=== PATIENT | female | born 1985 | race Caucasian/White ===

== ENCOUNTER → 2019-06-12 12:10 | Outpatient (BNVA) | payer BC, SELFPAY | PROVIDERS: Family Provider Nurse Practitioner Family; PCP Nurse Practitioner Family; Visit Provider Nurse Practitioner Family | DX: R94.4 Abnormal results of kidney function studies (principal) | CPT/HCPCS: 82570; 84156 ==

== ENCOUNTER → 2019-12-04 14:06 | Outpatient (BNVA) | payer BC, SELFPAY | PROVIDERS: Family Provider Nurse Practitioner Family; PCP Nurse Practitioner Family; Visit Provider Nurse Practitioner Family | DX: Z11.59 Encounter for screening for other viral diseases (principal) | CPT/HCPCS: 87635 ==

== ENCOUNTER → 2020-05-15 10:50 | Outpatient (BNVA) | payer BC, SELFPAY | PROVIDERS: Family Provider Nurse Practitioner Family; PCP Nurse Practitioner Family; Visit Provider Nurse Practitioner Family | DX: E03.9 Hypothyroidism, unspecified (principal); E55.9 Vitamin D deficiency, unspecified; D64.9 Anemia, unspecified; Z79.899 Other long term (current) drug therapy; Z13.6 Encounter for screening for cardiovascular disorders | CPT/HCPCS: 80053; 80061; 81003; 82306; 82607; 82746; 83036; 83550; 84439; 84443; 84481; 85025 ==

== ENCOUNTER 2020-06-17 14:43 | Outpatient (CLI) | payer OTHER, SELFPAY ==
--- NOTE | 2020-06-17 14:46 | US_ITS ---
WS: [id number] THYROID ULTRASOUND (TI-RADS CRITERIA) History: Hypothyroidism. Technique: Ultrasound examination of the thyroid and adjacent soft tissues is performed. FINDINGS: Right lobe: 5.4 cm x 1.3 cm x 1.4 cm. Volume: 4.9 cm3. Normal size and echogenicity. There is a subcentimeter hypoechoic nodule in the superior thyroid rory uring 7 x 5 x 4 mm. Benign cervical chain lymph nodes. Left lobe: 4.4 cm x 1.1 cm x 1.1 cm. Volume: 2.9 cm3. Normal size. Complex cystic nodule in the mid gland measuring 1.0 x 0.9 x 0.7 cm. Isthmus: 0.3 cm. Estimated total number of nodules greater than or equal to 1 cm: 1 on the LEFT. Number of spongiform nodules greater than or equal to 2 cm not described below (TR1): 0. Number of mixed cystic and solid nodules greater than or equal to 1.5 cm not described below (TR2): 0 NODULE: 1, superior LEFT. Size: 1.0 x 0.9 x 0.7 cm Location: Mid LEFT thyroid Composition: Mixed cystic and solid (1) Echogenicity: Hypoechoic (2) Shape: Not taller than wide (0) Margins: Smooth (0) Echogenic foci: None (0) ACR TI-RADS total points: 3 ACR TI-RADS risk category: TR 3 US/US thyroid [id number] Impression: TR 3 Recommendation:Follow up ultrasound in 1, 3 and 5 years. If thyroid nodule(s) change on follow-up examinations the recommendations will be altered as necessary.
== END 2020-06-17 14:44 | disposition home or self-care (01) ==
PROVIDERS: PCP Nurse Practitioner Family; Visit Provider Nurse Practitioner Family
DX: E03.9 Hypothyroidism, unspecified (principal)
CPT/HCPCS: 76536

== ENCOUNTER 2020-07-30 08:07 | Outpatient (CLI) | payer OTHER, SELFPAY ==
--- NOTE | 2020-07-30 08:19 | US_ITS ---
WS: [id number] TRANSABDOMINAL PELVIC AND TRANSVAGINAL PELVIC ULTRASOUND HISTORY: THREATENED COMPARISON: None available. Uterus: 9.8 cm x 3.6 cm x 5.2 cm. Mildly enlarged anteverted uterus. No fibroid or mass. Endometrium: 0.5 cm. Normal echogenicity and size. No intrauterine gestation. Right ovary: 3.4 cm x 1.6 cm x 2.9 cm. Normal size ovary with normal vascularity. Left ovary: 3.8 cm x 2.3 cm x 3.0 cm. Normal size ovary with normal vascularity. Small amount of physiologic free fluid in the cul-de-sac. US/US pelvic with transvaginal IMPRESSION: 1. No intrauterine gestation identified. If there is a positive beta hCG ectop ic is not excluded. 2. No adnexal mass.
== END 2020-07-30 08:08 | disposition home or self-care (01) ==
PROVIDERS: PCP Nurse Practitioner Family; Visit Provider Obstetrics & Gynecology
DX: O20.0 Threatened abortion (principal)
CPT/HCPCS: 76830; 76856; 84702

== ENCOUNTER 2020-08-01 11:03 | Outpatient (CLI) | payer OTHER, SELFPAY ==
--- NOTE | 2020-08-01 11:30 | FL_ITS ---
WS: [id number] Modified barium swallow, 08/01/2020 Clinical Data: R13.10 - Dysphagia, unspecified Comparison: None. Fluoroscopy time: 1.8 minutes. Findings: The patient had a functional oral phase and initiated swallowing normally. There is no penetration or aspiration. There was minimal vallecular residue which cleared with double swallows. The patient swa llowed barium tablet without hesitation and there is no obstruction. FL/FL barium swallow modifd [id number] Impression: 1. Minimal vallecular residue was cleared with double swallows. 2. No evidence of distal esophageal obstruction.
== END 2020-08-01 11:04 | disposition home or self-care (01) ==
LOC: RAD 11:06
PROVIDERS: PCP Nurse Practitioner Family; Visit Provider Surgery
DX: R13.10 Dysphagia, unspecified (principal)
CPT/HCPCS: 74230; 84702; 92611

== ENCOUNTER → 2020-08-07 15:55 | Outpatient (BNVA) | payer OTHER, SELFPAY | PROVIDERS: PCP Nurse Practitioner Family; Referring Provider Nurse Practitioner Family; Visit Provider Internal Medicine | DX: E04.1 Nontoxic single thyroid nodule (principal); M54.2 Cervicalgia | CPT/HCPCS: 99205 ==

== ENCOUNTER → 2020-11-06 09:29 | Outpatient (BNVA) | payer OTHER, SELFPAY | PROVIDERS: PCP Nurse Practitioner Family; Visit Provider Nurse Practitioner Family | DX: Z00.00 Encounter for general adult medical examination without abnormal findings (principal); E03.9 Hypothyroidism, unspecified; I10 Essential (primary) hypertension; Z79.899 Other long term (current) drug therapy; E55.9 Vitamin D deficiency, unspecified; Z80.3 Family history of malignant neoplasm of breast; E04.1 Nontoxic single thyroid nodule | CPT/HCPCS: 80053; 80061; 81003; 82306; 83036; 84439; 84443; 85025; 86304 ==

== ENCOUNTER 2021-07-20 15:35 | Outpatient (CLI) | payer OTHER, SELFPAY ==
--- NOTE | 2021-07-20 | US_ITS ---
WS: [id number] THYROID ULTRASOUND HISTORY: NONTOXIC SINGLE THYROID NODULE COMPARISON: None available. Right lobe: 1.1 cm x 1.3 cm x 4.7 cm (w x ap x l). Volume: 3.4 cm3. Normal size thyroid gland. Hypoechoic nodule is ovoid in the superior gland. This well-circumscribed hypoechoic nodule measures 5 x 4 x 6 mm. Left lobe: 1.3 cm x 1.2 cm x 4.5 cm (w x ap x l). Volume: 3.6 cm3. Normal size thyroid gland. Round hypoechoic nodule without increased vascularity in the superior pole measures 5 x 3 x 4 mm. Small benign-appearing bilateral cervical chain lymph nodes. Isthmus: 0.3 cm. US/US thyroid [id number] IMPRESSION: 1. Bilateral subcentimeter superior pole thyroid nodules. Very nonspecific and may be complex cysts. There are no suspicious masses for which biopsy should b e recommended. 2. Normal size thyroid gland.
--- NOTE | 2021-07-20 15:45 | US_ITS ---
WS: [id number] ULTRASOUND SOFT TISSUES LEFT occiput. HISTORY: R59.1 - Generalized enlarged lymph nodes COMPARISON: None available. TECHNIQUE: 2-D and color Doppler imaging is submitted. Ultrasound is directed over the LEFT occipital region as directed by the patient. The soft tissue nod ule is a benign-appearing lymph node. There is a normal fatty hilum and symmetric cortex. No increase d vascularity. US/US soft tissue head neck [id number] IMPRESSION: Palpable area over the LEFT occiput corresponds to a normal lymph node.
== END 2021-07-20 15:36 | disposition home or self-care (01) ==
PROVIDERS: PCP Nurse Practitioner Family; Visit Provider Family Medicine
DX: R59.1 Generalized enlarged lymph nodes (principal); E04.2 Nontoxic multinodular goiter
CPT/HCPCS: 76536

== ENCOUNTER 2021-08-18 14:06 | Outpatient (CLI) | payer OTHER, SELFPAY ==
--- NOTE | 2021-08-18 14:20 | CT_ITS ---
WS: [id number] CT NECK TECHNIQUE: Noncontrast CT of the neck with coronal and sagittal reformatted images. CLINICAL INFORMATION: swollen lymph node COMPARISON: Ultrasound July 20, 2021 DLP: 302.[address] scans at [facility] use at least one of these dose optimization techniques: automated e xposure control; mA and/or kV adjustment per patient size (includes targeted exams where dose is matc hed to clinical indication); or iterative reconstruction. FINDINGS: Small lymph node in the LEFT suboccipital area likely corresponds to the small lymph node seen on the recent ultrasound measuring 7 mm. Mastoid air cells are well aerated. Paranasal sinuses are well aer ated. Mild mucosal thickening in the ethmoid air cells. Tiny retention cyst RIGHT maxillary sinus. Normal visualized posterior fossa. Normal parapharyngeal fat. Normal parotid glands. Normal submandib ular glands. Normal posterior nasopharynx. No evidence of supraglottic or glottic mass. Subglottic airway is shannen l. A few small low-attenuation thyroid nodules. Lung apices are well aerated. No cervical lymphadenopathy. Straightening of the normal cervical lordo sis. CT/CT neck wo con [id number] IMPRESSION: 1. LEFT suboccipital lymph node measuring 7 mm likely corresponds to the recen t ultrasound findings. 2. No cervical lymphadenopathy. 3. Normal salivary glands. 4. No evidence of supraglottic or glottic mass. 5. A few small subcentimeter low-attenuation thyroid nodules largest in the LE FT measuring 6 mm.
== END 2021-08-18 14:07 | disposition home or self-care (01) ==
LOC: RAD 14:10
PROVIDERS: PCP Nurse Practitioner Family; Visit Provider Otolaryngology
DX: R59.1 Generalized enlarged lymph nodes (principal); E04.2 Nontoxic multinodular goiter
CPT/HCPCS: 70490

== ENCOUNTER → 2021-09-05 11:11 | Outpatient (BNVA) | payer OTHER, SELFPAY | PROVIDERS: PCP Nurse Practitioner Family; Visit Provider Nurse Practitioner Family | DX: R10.9 Unspecified abdominal pain (principal) | CPT/HCPCS: 81000 ==

== ENCOUNTER → 2021-10-28 13:13 | Outpatient (BNVA) | payer OTHER, SELFPAY | PROVIDERS: PCP Nurse Practitioner Family; Visit Provider Obstetrics & Gynecology | DX: Z34.90 Encounter for supervision of normal pregnancy, unspecified, unspecified trimester (principal) | CPT/HCPCS: 80307; 84315; 84443; 85025; 86592; 86762; 86803; 86850; 86900; 87086; 87340; 87806 ==

== ENCOUNTER → 2021-11-16 08:43 | Outpatient (BNVA) | payer OTHER, SELFPAY | PROVIDERS: PCP Nurse Practitioner Family; Visit Provider Obstetrics & Gynecology | DX: O09.899 Supervision of other high risk pregnancies, unspecified trimester (principal); Z3A.00 Weeks of gestation of pregnancy not specified | CPT/HCPCS: 82950; 84315; 87491; 87591; 87624; 87661 ==

== ENCOUNTER → 2021-11-18 08:09 | Outpatient (BNVA) | payer OTHER, SELFPAY | PROVIDERS: PCP Nurse Practitioner Family; Visit Provider Obstetrics & Gynecology | DX: R73.9 Hyperglycemia, unspecified (principal) | CPT/HCPCS: 83036 ==

== ENCOUNTER → 2022-03-01 09:31 | Outpatient (BNVA) | payer OTHER, SELFPAY | PROVIDERS: PCP Nurse Practitioner Family; Visit Provider Obstetrics & Gynecology | DX: O09.899 Supervision of other high risk pregnancies, unspecified trimester (principal); Z3A.00 Weeks of gestation of pregnancy not specified | CPT/HCPCS: 84315; 85025 ==

== ENCOUNTER → 2022-04-01 14:00 | Outpatient (BNVA) | payer OTHER, SELFPAY | PROVIDERS: PCP Nurse Practitioner Family; Visit Provider Obstetrics & Gynecology | DX: O09.899 Supervision of other high risk pregnancies, unspecified trimester (principal); Z3A.00 Weeks of gestation of pregnancy not specified | CPT/HCPCS: 81000 ==

== ENCOUNTER → 2022-04-15 14:00 | Outpatient (BNVA) | payer OTHER, SELFPAY | PROVIDERS: PCP Nurse Practitioner Family; Visit Provider Obstetrics & Gynecology | DX: O09.899 Supervision of other high risk pregnancies, unspecified trimester (principal); Z3A.00 Weeks of gestation of pregnancy not specified | CPT/HCPCS: 81000 ==

== ENCOUNTER 2023-08-18 15:17 | Outpatient (CLI) | payer BC, MEDICAID, SELFPAY ==
--- NOTE | 2023-08-18 15:15 | US_ITS ---
WS: [id number] ULTRASOUND THYROID TECHNIQUE: Ultrasound of the thyroid. CLINICAL INFORMATION: thyroid nodule COMPARISON: 2021 FINDINGS: Thyroid: Hypoechoic RIGHT thyroid nodule measuring 5 x 3 x 7 mm. Hypoechoic LEFT thyroid nodule measuring 4 x 3 x 4 mm unchanged compared to previous Right thyroid lobe: 4.5 cm x 1.2 cm x 1.3 cm Left thyroid lobe: 3.7 cm x 1.3 cm x 1.0 cm. Isthmus: 0.4 mm. Cervical lymphadenopathy: None. IMPRESSION: 1. No significant changes compared to previous. 2. Bilateral hypoechoic subcentimeter thyroid nodules unchanged. 3. No other suspicious findings.
== END 2023-08-18 15:18 | disposition home or self-care (01) ==
LOC: RAD 15:17
PROVIDERS: PCP Nurse Practitioner Family; Visit Provider Internal Medicine
DX: E04.1 Nontoxic single thyroid nodule (principal)
CPT/HCPCS: 76536

== ENCOUNTER → 2023-09-27 14:06 | Outpatient (BNVA) | payer BC, MEDICAID, SELFPAY | PROVIDERS: PCP Nurse Practitioner Family; Visit Provider Obstetrics & Gynecology | DX: E04.1 Nontoxic single thyroid nodule (principal); E11.9 Type 2 diabetes mellitus without complications; E28.2 Polycystic ovarian syndrome | CPT/HCPCS: 36415; 80053; 80061; 82043; 83036; 84439; 84443; 88304 ==

== ENCOUNTER → 2023-10-11 08:00 | Outpatient (BNVA) | payer BC, MEDICAID, SELFPAY | PROVIDERS: PCP Nurse Practitioner Family; Visit Provider Internal Medicine | DX: E04.1 Nontoxic single thyroid nodule (principal); E11.9 Type 2 diabetes mellitus without complications; E28.2 Polycystic ovarian syndrome | CPT/HCPCS: 82530; 82570 ==

== ENCOUNTER → 2025-04-05 10:23 | Outpatient (BNVA) | payer BC, MEDICAID, SELFPAY | PROVIDERS: PCP Nurse Practitioner Family; Visit Provider Nurse Practitioner Family | DX: Z00.00 Encounter for general adult medical examination without abnormal findings (principal); D64.9 Anemia, unspecified; I10 Essential (primary) hypertension; E04.1 Nontoxic single thyroid nodule; E55.9 Vitamin D deficiency, unspecified; Z79.899 Other long term (current) drug therapy | CPT/HCPCS: 80053; 80061; 81003; 82306; 82607; 82728; 82746; 83036; 83550; 84439; 84443; 85025 ==

== ENCOUNTER 2025-04-11 07:59 | Outpatient (CLI) | payer BC, MEDICAID, SELFPAY ==
--- NOTE | 2025-04-11 08:00 | CT_ITS ---
WS: [id number] CT ABDOMEN WITH CONTRAST HISTORY: K43.9 - Ventral hernia without obstruction or gangrene Single phase imaging of the abdomen. Oral contrast has not been provided. Coronal and sagittal reformats are submitted. All CT scans at [facility] use at least one of these dose optimization techniques: automated exposure control; mA and/or kV adjustment per patient size (includes targeted exams where dose is matched to clinical indication); or iterative reconstruction. IV CONTRAST: Omnipaque 350; 100 mL IV. Oral contrast: No DLP: 831.62 mGy.cm COMPARISON: None available. Lower thorax: Lung bases are clear. Heart is normal size. Very small hiatal hernia. Liver/biliary system: Moderately enlarged liver. No intra paddock duct dilatation. Normal portal vein. Subtle area of decreased attenuation in the LEFT lobe of the liver measures 7 mm. Gallbladder: Normal. No gallstones or wall thickening. No pericholecystic fluid. Pancreas: Normal size pancreas and pancreatic duct. No adjacent inflammation. Spleen: Normal size spleen. No mass or infarct. Adrenal glands: Normal RIGHT adrenal gland. Well-circumscribed low-attenuation LEFT adrenal mass measures 2.9 x 2.6 cm. Right kidney: Normal. Left kidney: Normal. Aorta: Normal. Lymphadenopathy: None. Free fluid: None. GI tract: No obstruction. No colitis. This CT of the abdomen includes only the GI tract with included within the abdomen. Abdominal wall: Ventral abdominal wall hernia contains omental fat. The omental fat demonstrates stranding and increased attenuation that is herniated. There is no fluid within the hernia. Orifice of the hernia is 2.4 cm. No additional hernia. Visualized osseous structures: Unremarkable. CT/CT abdomen w con* [id number] IMPRESSION: 1. Moderate-sized umbilical hernia contains omental fat only. Soft tissue stra nding within the herniated omental fat suggesting there may be an ongoing fat n ecrosis. There is no associated fluid within the hernia sac. 2. LEFT adrenal mass of low-attenuation measures 2.9 x 2.6 cm. With no history of malignancy this is likely benign adenoma. 3. Very subtle area of decreased attenuation LEFT lobe of the liver measures 7 mm. 4. Recommendation: CT or MRI adrenal mass protocol would help further evaluate the adrenal gland and also the subtle lesion within the LEFT lobe of the liver .
[2025-04-11] MEDS: iohexol 350 mg/mL 500 mL Btl (per mL) IV (08:29)
== END 2025-04-11 08:00 | disposition home or self-care (01) ==
LOC: RAD 07:59
PROVIDERS: PCP Nurse Practitioner Family; Visit Provider Nurse Practitioner Family
DX: K43.9 Ventral hernia without obstruction or gangrene (principal); K42.9 Umbilical hernia without obstruction or gangrene; E27.9 Disorder of adrenal gland, unspecified; K76.89 Other specified diseases of liver
CPT/HCPCS: 74160

== ENCOUNTER 2025-04-19 14:31 | Outpatient (CLI) | payer BC, MEDICAID, SELFPAY ==
--- NOTE | 2025-04-19 14:30 | USR_ITS ---
PROCEDURE INFORMATION: Exam: US Soft Tissue Head and Neck, Thyroid Exam date and time: 04/19/2025 2:42 PM Age: 40 years old Clinical indication: Condition or disease; Thyroid disorder; Other: Nontoxic single thyroid nodule; Additional info: E04.1 - nontoxic single thyroid nodule TECHNIQUE: Imaging protocol: Real-time ultrasound scan of the neck with image documentation. Exam focused on the thyroid. COMPARISON: [place] thyroid [id number] 08/18/2023 3:42 PM FINDINGS: Right thyroid lobe: Tiny 0.5 cm anechoic nodule, likely cystic, wider than tall, smooth margins, no echogenic foci, TR 1, not typically followed on imaging given small size. Left thyroid lobe: Tiny anechoic 0.3 cm nodule, likely cystic, wider than tall, smooth margins, no echogenic foci, TR 1, not typically followed on imaging given small size. Isthmus: No nodules. US/US thyroid [id number] IMPRESSION: Tiny thyroid nodules as described above, benign-appearing and subcentimeter in size.
== END 2025-04-19 14:32 | disposition home or self-care (01) ==
LOC: RAD 14:32
PROVIDERS: PCP Nurse Practitioner Family; Visit Provider Nurse Practitioner Family
DX: Z00.00 Encounter for general adult medical examination without abnormal findings (principal); R01.1 Cardiac murmur, unspecified; E04.1 Nontoxic single thyroid nodule; R06.00 Dyspnea, unspecified; I10 Essential (primary) hypertension; E55.9 Vitamin D deficiency, unspecified; Z79.899 Other long term (current) drug therapy
CPT/HCPCS: 76536

== ENCOUNTER 2025-04-24 14:25 | Outpatient (CLI) | payer BC, MEDICAID, SELFPAY ==
--- NOTE | 2025-04-24 14:20 | MM_ITS ---
WS: [id number] BILATERAL 3D TOMOSYNTHESIS DIGITAL SCREENING MAMMOGRAPHY WITH CAD CLINICAL INFORMATION: Z12.39 - Encounter for other screening for malignant neop... HISTORY: Screening mammogram. No current complaints. COMPARISON: 2019 TECHNIQUE: Bilateral CC and MLO views. FINDINGS: Scattered fibroglandular densities bilaterally. No suspicious focal mass, asymmetry, calcifications, or architectural distortion. No evidence of malignancy. MM/MM scr tomosynthesis [id number] IMPRESSION: DENSITY: There are scattered areas of fibroglandular density. BI-RADS: 1 - Negative. FOLLOW UP: 1 Year Follow-up Recommend return to annual screening mammography.
--- NOTE | 2025-04-24 15:00 | USCV_ITS ---
Loly Burns Age: 40 Gender: F : 1985 Exam Date: 04/24/2025 14:48 Ordering Phys: MAYTE Everett APRN Technologist: Exam Location: [facility] [place] Indication: murmur BP: 120 / 80 HR: 72 Rhythm: Sinus Technical Quality: Adequate MEASUREMENTS (Male / Female) Normal Values 2D ECHO LV Diastolic Diameter PLAX 4.9 cm 4.2 - 5.9 / 3.9 - 5.3 cm IVS Diastolic Thickness 1.4 cm 0.6 - 1.0 / 0.6 - 0.9 cm IVS Systolic Thickness 1.8 cm LVPW Diastolic Thickness 1.1 cm 0.6 - 1.0 / 0.6 - 0.9 cm LVPW Systolic Thickness 1.7 cm LVOT Diameter 2.6 cm LV Ejection Fraction 2D Teich 66.0 % LV Ejection Fraction MOD 4C 63.6 % LV Ejection Fraction MOD 2C 64.4 % LV Ejection Fraction 2C AL 64.1 % LA Diameter 3.8 cm RA Systolic Volume 4C AL 53.0 ml RA Systolic Volume 4C MOD 51.8 ml Aorta at Sinotubular Diameter 3.1 cm IVC Diameter 1.9 cm DOPPLER AV Peak Velocity 143.0 cm/s LVOT Peak Velocity 83.0 cm/s AV Area Cont Eq vti 3.8 cm squared AV Area Cont Eq pk 3.1 cm squared MV Peak Velocity 85.0 cm/s MV Area PHT 3.5 cm squared Mitral E to A Ratio 1.2 TV Peak Velocity 251.0 cm/s TR Peak Velocity 309.0 cm/s TR Peak Gradient 38.2 mmHg PV Peak Velocity 120.0 cm/s FINDINGS Left Ventricle Normal left ventricular size, systolic function and wall thickness, with no regional wall motion abnormalities. Left ventricular ejection fraction is estimated at 65%. Right Ventricle Normal right ventricular size and systolic function. Right Atrium Normal right atrial size. Left Atrium Normal left atrial size. IA Septum Normal interatrial septum. Mitral Valve Structurally normal mitral valve. Trace mitral valve regurgitation. Aortic Valve Structurally normal trileaflet aortic valve. No aortic valve stenosis. Tricuspid Valve Trace tricuspid valve regurgitation. Insufficient tricuspid regurgitant jet to measure TVPG and right heart/pulmonary pressures. Pulmonic Valve Pulmonic valve not well visualized. Trace pulmonary valve regurgitation. Pericardium No pericardial effusion. Aorta Normal size aortic root and proximal ascending aorta. IVC Normal inferior vena cava. CONCLUSIONS Normal left ventricle size and systolic function. LVEF normal estimated at 65%. Normal RV size and RV systolic function. Normal right and left atria. No significant valvular abnormality noted. Asif Morel MD (Electronically Signed) Final Date: 24 April 2025 16:12 S
== END 2025-04-24 14:26 | disposition home or self-care (01) ==
LOC: RAD 14:26
PROVIDERS: PCP Nurse Practitioner Family; Visit Provider Nurse Practitioner Family
DX: Z12.31 Encounter for screening mammogram for malignant neoplasm of breast (principal); R92.323 Mammographic fibroglandular density, bilateral breasts; R01.1 Cardiac murmur, unspecified; I36.1 Nonrheumatic tricuspid (valve) insufficiency; I37.1 Nonrheumatic pulmonary valve insufficiency
CPT/HCPCS: 77063; 77067; 93306

== ENCOUNTER 2025-04-29 13:04 | Outpatient (CLI) | payer BC, MEDICAID, SELFPAY ==
--- NOTE | 2025-04-29 13:00 | MR_ITS ---
WS: [id number] MRI ADRENALS WITH AND WITHOUT CONTRAST. COMPARISON: CT 04/11/2025 Multiplanar, multisequence imaging is performed with and without contrast. Sagittal and axial T1 fat sat sequences post-MultiHance 20 cc IV. History: LEFT adrenal mass and subtle lesion in the LEFT lobe of the liver seen on recent CT of 04/11/2025. LEFT adrenal gland: Well-circumscribed, slightly lobulated mass centered in the LEFT adrenal gland measures 2.6 x 3.2 cm. On the out of phase imaging there is complete loss of signal consistent with an adenoma. RIGHT adrenal gland is normal. Liver: Liver is mildly enlarged. Diffuse hepatic steatosis. Reidentified is the LEFT hepatic lobe lesion which is very small and difficult to visualize on the T2 sequences. This lesion measures 9 x 11 mm and does not enhance. This is most consistent with a benign cyst. Normal portal vein. No additional lesions within the liver. Gallbladder: Normally distended with cholelithiasis. Pancreas: Normal. No pancreatic duct dilatation. Common bile duct is normal size. Spleen: Normal size. No mass. No renal obstruction. No ascites or adenopathy. Large umbilical hernia contains fat. MR/MR adrenals wo/w con [id number] IMPRESSION: 1. Benign LEFT adrenal adenoma measures 2.6 x 3.2 cm. 2. LEFT hepatic lobe nonenhancing lesion measures 9 x 11 mm. This is probably a small cyst. Due to its small size difficult to visualize on the T2 sequences without contrast. 3. Cholelithiasis without acute cholecystitis. 4. Hepatic steatosis.
[2025-04-29] MEDS: gadobenate dimeglumine 20 mL vial 19 ML IV (13:44)
== END 2025-04-29 13:05 | disposition home or self-care (01) ==
LOC: RAD 13:04
PROVIDERS: PCP Nurse Practitioner Family; Visit Provider Nurse Practitioner Family
DX: E27.8 Other specified disorders of adrenal gland (principal); K76.9 Liver disease, unspecified; D35.02 Benign neoplasm of left adrenal gland; K76.89 Other specified diseases of liver; K80.20 Calculus of gallbladder without cholecystitis without obstruction; K76.0 Fatty (change of) liver, not elsewhere classified
CPT/HCPCS: 74183; A9577